=== PATIENT | male | born 1950 | race Hispanic/Latino ===

== ENCOUNTER 2021-08-28 18:08 | Emergency (ER) | payer OTHER ==
[~2021-08-28] VITALS: Ht 167.6 cm; Wt 70.8 kg
[~2021-08-28 18:08] MED LIST: FLEXERIL5 MG PO; MEDDOSEPAK PO; PERCOCET 5/325M1 TAB PO
[2021-08-28 19:23] LABS: HEMATOCRIT 39.9 % (39.0-50.0); HEMOGLOBIN 13.4 g/dl (14.0-18.0); IMMATURE GRANULOCYTES 0.2 % (0.0-5.0); MEAN CELL VOLUME 97.3 fL CALC (80.0-100.0); MEAN CORPUSCULAR HGB 32.7 pG CALC (26.0-32.0); MEAN CORPUSCULAR HGB CONC 33.6 g/dL CAL (32.0-36.0); NEUT# 3.04 thou/uL (1.82-7.42); RED BLOOD COUNT 4.1 mill/uL (4.70-6.10); RED CELL DISTRI WIDTH 12.2 % (11.5-15.5)
[2021-08-28 19:35] LABS: ALBUMIN 3.8 g/dL (3.2-5.0); ALKALINE PHOSPHATASE 125 u/l (38-126); ANION GAP 12 (6-22 (CALC)); BILIRUBIN, TOTAL 0.5 mg/dL (0.0-1.4); BUN 14 mg/dL (8-23); BUN/CREATININE RATIO 19 (12-20 (CALC)); CARBON DIOXIDE 26 mmol/l (22-30); CHLORIDE 102 mmol/l (95-108); CREATININE 0.7 mg/dL (0.7-1.3); GFR > 60 ML/MIN (>=60 (CALC)); GFR FOR AFR.AMER. > 60 ML/MIN (>=60 (CALC)); POTASSIUM 3.9 mmol/l (3.5-5.1); SGOT/AST 39 u/l (19-48); SODIUM 136 mmol/l (137-146); TOTAL PROTEIN 7.5 g/dL (6.3-8.2)
[2021-08-28] MEDS ORDERED: TESSALON PERLE100 MG (19:39)
[2021-08-28] MEDS ORDERED: DECADRON2 MG PO (20:18)
[2021-08-28] MEDS ORDERED: ZPAK PO (20:18)
[2021-08-28] MEDS ORDERED: VENTOLIN HFA IN (20:18)
[2021-08-28 20:30] VITALS: BP 126/635
== END 2021-08-28 20:30 | disposition home or self-care (01) | DRG 177 ==
LOC: ED 18:08
PROVIDERS: Family Medicine
DX: U07.1 COVID-19 (principal); J12.82 Pneumonia due to coronavirus disease 2019; F17.200 Nicotine dependence, unspecified, uncomplicated

== ENCOUNTER 2021-09-08 07:42 | Emergency (ER) | payer SELFPAY ==
[~2021-09-08] VITALS: Ht 167.6 cm; Wt 73.2 kg
[~2021-09-08 07:42] MED LIST changes: +DECADRON2 MG PO; +TESSALON PERLE100 MG; +VENTOLIN HFA IN; +ZPAK PO
[2021-09-08 08:29] LABS: HEMATOCRIT 37.4 % (39.0-50.0); HEMOGLOBIN 12.3 g/dl (14.0-18.0); IMMATURE GRANULOCYTES 0.2 % (0.0-5.0); MEAN CELL VOLUME 100.8 fL CALC (80.0-100.0); MEAN CORPUSCULAR HGB 33.2 pG CALC (26.0-32.0); MEAN CORPUSCULAR HGB CONC 32.9 g/dL CAL (32.0-36.0); NEUT# 3.43 thou/uL (1.82-7.42); RED BLOOD COUNT 3.71 mill/uL (4.70-6.10); RED CELL DISTRI WIDTH 14.3 % (11.5-15.5)
[2021-09-08 08:38] LABS: ALBUMIN 3.4 g/dL (3.2-5.0); ALKALINE PHOSPHATASE 107 u/l (38-126); ANION GAP 7 (6-22 (CALC)); BILIRUBIN, TOTAL 0.7 mg/dL (0.0-1.4); BUN 10 mg/dL (8-23); BUN/CREATININE RATIO 15 (12-20 (CALC)); CARBON DIOXIDE 30 mmol/l (22-30); CHLORIDE 102 mmol/l (95-108); CREATININE 0.7 mg/dL (0.7-1.3); GFR > 60 ML/MIN (>=60 (CALC)); GFR FOR AFR.AMER. > 60 ML/MIN (>=60 (CALC)); MAGNESIUM 2.2 mg/dL (1.6-2.3); POTASSIUM 3.5 mmol/l (3.5-5.1); SGOT/AST 26 u/l (19-48); SODIUM 136 mmol/l (137-146); TOTAL PROTEIN 6.4 g/dL (6.3-8.2)
[2021-09-08] MEDS ORDERED: TORADOL PO (13:11)
[2021-09-08 13:39] VITALS: BP 133/69
== END 2021-09-08 13:39 | disposition home or self-care (01) | DRG 948 ==
LOC: ED 07:42
PROVIDERS: Emergency Medicine
DX: R53.1 Weakness (principal); J02.9 Acute pharyngitis, unspecified; F17.200 Nicotine dependence, unspecified, uncomplicated; Z86.16 Personal history of COVID-19
CPT/HCPCS: Q9967

== ENCOUNTER 2022-04-13 13:35 | Observation (INO) | payer SELFPAY ==
[~2022-04-13] VITALS: Ht 167.6 cm; Wt 75.0 kg
[2022-04-13] VITALS (26 sets, daily range): BP systolic 95–136; BP diastolic 45–67
[~2022-04-13 13:35] MED LIST changes: +TORADOL PO
[2022-04-13 14:37] LABS: HEMATOCRIT 37.6 % (39.0-50.0); HEMOGLOBIN 12.8 g/dl (14.0-18.0); IMMATURE GRANULOCYTES 0.7 % (0.0-5.0); MEAN CELL VOLUME 98.4 fL CALC (80.0-100.0); MEAN CORPUSCULAR HGB 33.5 pG CALC (26.0-32.0); NEUT# 17.42 thou/uL (1.82-7.42); RED BLOOD COUNT 3.82 mill/uL (4.70-6.10); RED CELL DISTRI WIDTH 13.6 % (11.5-15.5)
[2022-04-13 14:43] LABS: ALBUMIN 3.7 g/dL (3.2-5.0); ALKALINE PHOSPHATASE 95 u/l (38-126); AMYLASE 58 u/l (30-110); ANION GAP 12 (6-22 (CALC)); BILIRUBIN, TOTAL 0.7 mg/dL (0.0-1.4); BUN 21 mg/dL (8-23); BUN/CREATININE RATIO 24 (12-20 (CALC)); CHLORIDE 104 mmol/l (95-108); CREATININE 0.9 mg/dL (0.7-1.3); GFR FOR AFR.AMER. > 60 ML/MIN (>=60 (CALC)); GFR OTHER RACES > 60 ML/MIN (>=60 (CALC)); LIPASE 48 u/l (23-300); POTASSIUM 3.5 mmol/l (3.5-5.1); SGOT/AST 38 u/l (19-48); SODIUM 134 mmol/l (137-146); TOTAL PROTEIN 6.8 g/dL (6.3-8.2)
[2022-04-13 14:51] LABS: CARBON DIOXIDE 22 mmol/l (22-30)
[2022-04-13 14:56] LABS: ACT PARTIAL THROMBO TIME 28.3 SECONDS (20.0-32.5); INTERNATIONAL NORMALIZED RATIO 1.1 RATIO (0.7-1.3); PROTHROMBIN TIME 11.2 SECONDS (9.0-12.5)
[2022-04-13 14:57] LABS: GFR FOR AFR.AMER. > 60 ML/MIN (>=60 (CALC)); GFR OTHER RACES > 60 ML/MIN (>=60 (CALC))
[2022-04-13 19:17] LABS: URINE BILIRUBIN - DIPSTICK NEGATIVE (NEGATIVE); URINE BLOOD DIPSTICK SMALL (NEGATIVE); URINE COLOR YELLOW; URINE GLUCOSE - DIPSTICK NEGATIVE (NEGATIVE); URINE KETONE NEGATIVE (NEGATIVE); URINE LEUK ESTERASE NEGATIVE (NEGATIVE); URINE PROTEIN - DIPSTICK NEGATIVE (NEG-TRACE)
[2022-04-13 19:23] LABS: URINE NITRITE - DIPSTICK NEGATIVE (Negative)
[2022-04-13 19:28] LABS: URINE RBC 0-2 RBC/hpf (0-5)
[2022-04-14] VITALS (7 sets, daily range): BP systolic 73–106; BP diastolic 38–57
[2022-04-14 06:17] LABS: HEMATOCRIT 34.7 % (39.0-50.0); HEMOGLOBIN 11.6 g/dl (14.0-18.0); MEAN CELL VOLUME 100.6 fL CALC (80.0-100.0); MEAN CORPUSCULAR HGB 33.6 pG CALC (26.0-32.0); MEAN CORPUSCULAR HGB CONC 33.4 g/dL CAL (32.0-36.0); RED BLOOD COUNT 3.45 mill/uL (4.70-6.10); RED CELL DISTRI WIDTH 13.8 % (11.5-15.5)
[2022-04-14 06:28] LABS: ANION GAP 7 (6-22 (CALC)); BUN 15 mg/dL (8-23); BUN/CREATININE RATIO 20 (12-20 (CALC)); CARBON DIOXIDE 23 mmol/l (22-30); CHLORIDE 110 mmol/l (95-108); CREATININE 0.7 mg/dL (0.7-1.3); GFR FOR AFR.AMER. > 60 ML/MIN (>=60 (CALC)); GFR OTHER RACES > 60 ML/MIN (>=60 (CALC)); MAGNESIUM 2.3 mg/dL (1.6-2.3); POTASSIUM 3.8 mmol/l (3.5-5.1); SODIUM 136 mmol/l (137-146)
[2022-04-15 00:12] VITALS: BP 112/56
[2022-04-15 04:59] VITALS: BP 105/57
[2022-04-15 06:08] LABS: HEMATOCRIT 40.4 % (39.0-50.0); HEMOGLOBIN 13.4 g/dl (14.0-18.0); MEAN CELL VOLUME 102.5 fL CALC (80.0-100.0); MEAN CORPUSCULAR HGB CONC 33.2 g/dL CAL (32.0-36.0); RED BLOOD COUNT 3.94 mill/uL (4.70-6.10); RED CELL DISTRI WIDTH 14.2 % (11.5-15.5)
[2022-04-15 06:18] LABS: ANION GAP 9 (6-22 (CALC)); BUN 14 mg/dL (8-23); BUN/CREATININE RATIO 17 (12-20 (CALC)); CARBON DIOXIDE 22 mmol/l (22-30); CHLORIDE 112 mmol/l (95-108); CREATININE 0.8 mg/dL (0.7-1.3); GFR FOR AFR.AMER. > 60 ML/MIN (>=60 (CALC)); GFR OTHER RACES > 60 ML/MIN (>=60 (CALC)); MAGNESIUM 2.5 mg/dL (1.6-2.3); POTASSIUM 4.3 mmol/l (3.5-5.1); SODIUM 139 mmol/l (137-146)
[2022-04-15 07:28] VITALS: BP 110/63
[2022-04-15 10:32] VITALS: BP 122/66
[2022-04-15] MEDS ORDERED: LEVAQUIN750 M1 PO (13:44)
[2022-04-15] MEDS ORDERED: COUGH CONT100 MG/5 M PO (13:46)
[2022-04-15 14:45] VITALS: BP 120/69
== END 2022-04-15 15:35 | disposition home or self-care (01) | DRG 195 ==
LOC: ED 13:35 → ED-I 15:35 → ED 17:47 → MS2 17:48
PROVIDERS: ADMIT Hospitalist; ATTEND Hospitalist
DX: J18.9 Pneumonia, unspecified organism (principal); I95.9 Hypotension, unspecified; M94.0 Chondrocostal junction syndrome [Tietze]; F17.200 Nicotine dependence, unspecified, uncomplicated; Z20.822 Contact with and (suspected) exposure to COVID-19
CPT/HCPCS: G0378; J1650; Q9967

== ENCOUNTER 2022-12-24 09:17 | Emergency (ER) | payer SELFPAY ==
[~2022-12-24] VITALS: Ht 165.1 cm; Wt 79.4 kg
[~2022-12-24 09:17] MED LIST changes: +COUGH CONT100 MG/5 M PO; +LEVAQUIN750 M1 PO
[2022-12-24 09:29] VITALS: BP 138/77
[2022-12-24 10:01] VITALS: BP 145/69
[2022-12-24 10:11] LABS: BASO% 0.2 % (0-3); EOS% 0.9 % (0-8); HEMOGLOBIN 13.7 g/dl (14.0-18.0); LYMPH% 38.4 % (15-41); MEAN CELL VOLUME 98.1 fL CALC (80.0-100.0); MEAN CORPUSCULAR HGB 32.8 pG CALC (26.0-32.0); MEAN CORPUSCULAR HGB CONC 33.4 g/dL CAL (32.0-36.0); MONO% 10.5 % (2-13); NEUT# 2.18 thou/uL (1.82-7.42); RED BLOOD COUNT 4.18 mill/uL (4.70-6.10)
[2022-12-24 10:30] VITALS: BP 135/77
[2022-12-24 10:58] LABS: ALBUMIN 4.1 g/dL (3.2-5.0); ALKALINE PHOSPHATASE 101 u/l (38-126); BUN 17 mg/dL (8-23); BUN/CREATININE RATIO 21 (12-20 (CALC)); CHLORIDE 105 mmol/l (95-108); CREATININE 0.8 mg/dL (0.7-1.3); GFR FOR AFR.AMER. > 60 ML/MIN (>=60 (CALC)); GFR OTHER RACES > 60 ML/MIN (>=60 (CALC)); POTASSIUM 4.2 mmol/l (3.5-5.1); SGOT/AST 35 u/l (19-48); SODIUM 137 mmol/l (137-146); TOTAL PROTEIN 7.2 g/dL (6.3-8.2)
[2022-12-24 11:01] VITALS: BP 124/69
[2022-12-24 11:01] LABS: ANION GAP 8 (6-22 (CALC)); BILIRUBIN, TOTAL 0.2 mg/dL (0.2-1.3); CARBON DIOXIDE 28 mmol/l (22-30)
[2022-12-24 11:31] VITALS: BP 141/75
[2022-12-24 11:36] VITALS: BP 141/75
[2022-12-24] MEDS ORDERED: FLEXERIL5 M1 PO (11:53)
[2022-12-24] MEDS ORDERED: TRAMADOL HYDROC50 M1 PO (11:53)
== END 2022-12-24 12:30 | disposition left against medical advice (07) | DRG 313 ==
LOC: ED 09:17
PROVIDERS: Family Medicine
DX: R07.9 Chest pain, unspecified (principal); F17.210 Nicotine dependence, cigarettes, uncomplicated

== ENCOUNTER 2023-01-08 12:26 | Emergency (ER) | payer SELFPAY ==
[2023-01-08] VITALS (28 sets, daily range): BP systolic 106–154; BP diastolic 62–86
[~2023-01-08] VITALS: Ht 165.1 cm; Wt 70.0 kg
[~2023-01-08 12:26] MED LIST changes: +FLEXERIL5 M1 PO; +TRAMADOL HYDROC50 M1 PO
[2023-01-08 13:43] LABS: BASO% 0.3 % (0-3); EOS% 0.6 % (0-8); HEMOGLOBIN 13.6 g/dl (14.0-18.0); LYMPH% 35.2 % (15-41); MEAN CELL VOLUME 96.7 fL CALC (80.0-100.0); MEAN CORPUSCULAR HGB 32.1 pG CALC (26.0-32.0); MEAN CORPUSCULAR HGB CONC 33.2 g/dL CAL (32.0-36.0); MONO% 13.8 % (2-13); NEUT# 1.78 thou/uL (1.82-7.42); NEUT% 50.1 % (42-76); RED BLOOD COUNT 4.24 mill/uL (4.70-6.10); RED CELL DISTRI WIDTH 12.9 % (11.5-15.5)
[2023-01-08 14:12] LABS: PROTHROMBIN TIME 10.1 SECONDS (9.0-12.5)
[2023-01-08 14:13] LABS: ALBUMIN 4.2 g/dL (3.2-5.0); ALKALINE PHOSPHATASE 94 u/l (38-126); ANION GAP 8 (6-22 (CALC)); BILIRUBIN, TOTAL 0.2 mg/dL (0.2-1.3); BUN 12 mg/dL (8-23); BUN/CREATININE RATIO 16 (12-20 (CALC)); CARBON DIOXIDE 28 mmol/l (22-30); CHLORIDE 103 mmol/l (95-108); CREATININE 0.7 mg/dL (0.7-1.3); GFR FOR AFR.AMER. > 60 ML/MIN (>=60 (CALC)); GFR OTHER RACES > 60 ML/MIN (>=60 (CALC)); POTASSIUM 3.6 mmol/l (3.5-5.1); SGOT/AST 40 u/l (19-48); SODIUM 135 mmol/l (137-146); TOTAL PROTEIN 7.1 g/dL (6.3-8.2)
[2023-01-08 15:54] LABS: URINE BILIRUBIN - DIPSTICK NEGATIVE (NEGATIVE); URINE BLOOD DIPSTICK TRACE-INTACT (NEGATIVE); URINE COLOR YELLOW; URINE GLUCOSE - DIPSTICK NEGATIVE (NEGATIVE); URINE KETONE NEGATIVE (NEGATIVE); URINE LEUK ESTERASE NEGATIVE (NEGATIVE); URINE PH 6.5 (4.5-8.0); URINE PROTEIN - DIPSTICK NEGATIVE (NEG-TRACE); URINE SPECIFIC GRAVITY <=1.005; URINE UROBILINOGEN - DIPSTICK 0.2 E.U./dL (0.2)
[2023-01-08 16:01] LABS: URINE NITRITE - DIPSTICK NEGATIVE (Negative)
== END 2023-01-08 18:19 | disposition home or self-care (01) | DRG 312 ==
LOC: ED 12:26
PROVIDERS: Nurse Practitioner
DX: I95.1 Orthostatic hypotension (principal); E86.0 Dehydration